=== PATIENT | female | born 1930 | race Caucasian/White ===

== ENCOUNTER → 2017-12-02 | Outpatient (RCR) | payer MEDICARE, OTHER ==
[2014-11-17 16:16] VITALS: BMI 52.8
--- NOTE | 2017-09-04 07:49 | PT INITIAL EVALUATION ---
MEDICAL DIAGNOSIS: Lymphedema, Skin Breakdown TREATMENT DIAGNOSIS: Lymphedema, Skin Breakdown, Venous Insufficiency, Obesity DATE OF ONSET: 08/23/17 SUBJECTIVE: Arpit is a pleasant 87 year-old female presenting to physical therapy for treatment of B LE edema with associated decreased mobility and function in ADL's. Pt reports that swelling started around 2001 following hip joint replacement and has remained high with continual joint replacement of B hips and the R knee. Pt reports swelling was off and on in the beginning, but then progressed to the current state slowly. Pt also reports a decrease of activity following surgical intervention resulting in weight gain as well. Pt reports that swelling is B, but worse in the L LE. Pt recently decide to seek medical assistance as progression resulted in occasional weeping of the anterior and posterior aspects of the L LE. Pt denies any pain associated with swelling. REHAB PROBLEM LIST: Decreased ROM Decreased Strength Impaired Transfers Decreased Endurance Decreased Function Decreased ADL's Decreased Mobility Decreased Gait PREVIOUS MEDICAL HISTORY: PMH significant for cardiac dysfunction including NM and murmur, but without CHF. PMH also significant for renal dysfunction. See EMR OBJECTIVE: Pt presents in a W/C. Morbidly obesity is present with B LE swelling L>R. Toes are square and swollen with hyperkeratosis present at the dorsal base B. ROM: ROM of B LE decreased secondary to weakness as well as bulk. Palpation: Pitting is present on the dorsum of the foot B, present on the R anterior monzon, and absent on the L anterior monzon. (-) Stemmer's sign on the R LE, (+) Stemmer's sign on digits 3-5 on the L LE. Sensation: Sensation diminished but intact to light touch on B LE. Pt denies any numbness or tingling in feet. Special Tests: Circumferential measures (L,R) in cm: 1st digit 8.7, 8.2, 2nd digit 6.5, 5.5, dorsum of foot 25.5, 23.8, figure-8 63, 60.5, above B malleoli 32.4, 32, calf 64, 52, below knee 54, 48. Mobility: Pt requires PT assistance for mobility of B LE for transfers on<>off plinth from seated<>supine. Pt ambulates with W/C for long distances with SPC for transfers in<>out of chair. At home pt reports that she ambulates with walker but is reportedly sedentary most of the day. Other Objective Findings: Skin changes are present on the anterior aspects of B shins as well as the posterior aspect of the L LE. The L anterior skin is most involved with hyperkeratosis present with 3 tiny active lesions with out present drainage, the surrounding skin is red, but not warm. Redness measured on the R anterior monzon at 6x10cm, and L anterior monzon at [id number]. ASSESSMENT: Pt shows signs and symptoms consistent with B LE venous insufficiency with mixed L LE lymphedema. Physical therapy, including MLD and wrapping, is indicated to address the above deficits reducing B limb volume resulting in increased pt functional ability to perform ADL's. Short Term Goals In 2 weeks pt will reduce L LE circumferential volume to within 1 cm of R LE for increased function with ADL's. In 4 weeks pt will reduce L LE circumferential volume to within .5 cm of R LE for increased function with ADL's. In 4 weeks pt will be independent with transfers from seated<>supine for improved function with ADL's. In 4 weeks pt will be independent with HEP and transition to maintenance of limb volume with compression garments. Patient's Goals Increase function, reduce weeping, reduce limb volume. PLAN: Patient to be seen for Manual Therapy/STM/MET Strengthening/condition Range of Motion Stretching Neuromuscular Re-ed Closed Chain Program Gait Trg/Balance Trg Home Exercise Program Therapeutic Activities 5x/Week for 4 Weeks If you have any questions, comments, or concerns about this report or plan, please contact me at . Thank you, Nina Leggett, PT, DPT, CLT MTDD
--- NOTE | 2017-09-24 12:49 | PT PLAN OF CARE ---
Physician: Maria De Jesus Ramirez MD Patient is being seen: 3x/Week Therapist: Nina Leggett, PT, DPT, CLT Medical Diagnosis: Lymphedema, Skin Breakdown Treatment Diagnosis: Lymphedema, Skin Breakdown, Venous Insufficiency, Obesity Date of Onset: 08/23/17 Date of Initial Evaluation: 09/03/17 Date patient was last seen: 09/23/17 Number of treatments: 10 Number of cancellations/No shows: 0 INTERVENTIONS: Manual Therapy/STM/MET Strengthening/condition Range of Motion Stretching Neuromuscular Re-ed Closed Chain Program Gait Trg/Balance Trg Home Exercise Program Therapeutic Activities GOALS: In 2 weeks pt will reduce L LE circumferential volume to within 1 cm of R LE for increased function with ADL's. In 4 weeks pt will reduce L LE circumferential volume to within .5 cm of R LE for increased function with ADL's. In 4 weeks pt will be independent with transfers from seated<>supine for improved function with ADL's. In 4 weeks pt will be independent with HEP and transition to maintenance of limb volume with compression garments. PATIENT'S GOAL: Increase function, reduce weeping, reduce limb volume. Status of Patient's Goals: In Progress Patient Compliance: Good Prognosis: Fair Reasons for continuing therapy: [place] shows good reductions in swelling in areas of increased fibrosis with slow progress likely secondary to precautions with renal dysfunction. Skin integrity shows improvement throughout B LE without any new locations of lesions or weeping. Pt to continue with MLD treatment and wrapping for further reductions and associated improvements with ADL's. ROM: ROM of B LE decreased secondary to weakness as well as bulk. Palpation: Pitting is present on the dorsum of the foot B, present on the R anterior monzon, and absent on the L anterior monzon. (-) Stemmer's sign on the R LE, (+) Stemmer's sign on digits 3-5 on the L LE. Special Tests: Circumferential measures (L,R) in cm: 1st digit 8.7, 8.2, 2nd digit 6.5, 5.5, dorsum of foot 24, 22.5, figure-8 61.2, 58.6, above B malleoli 31.3, 29.9, calf 59.4, 49.8, below knee 48.4, 46.6, above knee 58, 58 Mobility: Pt requires PT assistance for mobility of B LE for transfers on<>off plinth from seated<>supine. Pt ambulates with W/C for long distances with SPC for transfers in<>out of chair. At home pt reports that she ambulates with walker but is sedentary most of the day. If you have any questions or concerns, please feel free to contact me at . Thank you, Nina Leggett, PT, DPT, CLT MTDD
--- NOTE | 2017-10-18 16:48 | PT PLAN OF CARE ---
Physician: Maria De Jesus Ramirez MD Patient is being seen: 3x/Week Therapist: Nina Leggett, PT, DPT, CLT Medical Diagnosis: Lymphedema, Skin Breakdown Treatment Diagnosis: Lymphedema, Skin Breakdown, Venous Insufficiency, Obesity Date of Onset: 08/23/17 Date of Initial Evaluation: 09/03/17 Date patient was last seen: 10/18/17 Number of treatments: 20 Number of cancellations/No shows: 0 INTERVENTIONS: Manual Therapy/STM/MET Strengthening/condition Range of Motion Stretching Neuromuscular Re-ed Closed Chain Program Gait Trg/Balance Trg Home Exercise Program Therapeutic Activities GOALS: In 2 weeks pt will reduce L LE circumferential volume to within 1 cm of R LE for increased function with ADL's. In 4 weeks pt will reduce L LE circumferential volume to within .5 cm of R LE for increased function with ADL's. In 4 weeks pt will be independent with transfers from seated<>supine for improved function with ADL's. MET In 4 weeks pt will be independent with HEP and transition to maintenance of limb volume with compression garments. PATIENT'S GOAL: Increase function, reduce weeping, reduce limb volume. Status of Patient's Goals: In Progress Patient Compliance: Good Prognosis: Fair Reasons for continuing therapy: Pt shows significant differences in circumferential volumes with additional decrease in skin redness, blisters and fibrosis. Since initiating PT pt has had no episodes of skin tears or weeping and has had improved ROM and functional strength with performance of transfers. Pt shows greatest reduction in B feet with tendons and deep structures now palpable and visible. Redness and swelling remains in the L LE >R, posterior> anterior. Further MLD and compression therapy is indicated prior to pt transfer towards stockings. ROM: ROM of B LE decreased secondary to weakness as well as bulk. Palpation: Pitting is present on the R anterior monzon, and absent on the L anterior monzon. (-) Stemmer's sign in B foot and digits. Special Tests: Circumferential measures (L,R) in cm: 1st digit 8.2, 8.0, 2nd digit 5.7, 5.1, dorsum of foot 22.2, 21.2, figure-8 55.5, 55.6, above B malleoli 29, 27.2, calf 50.5, 49.5, below knee 50.5, 47.3, above knee 57.5, 57.8 Mobility: Pt is able to transfer from seated supine independently with multiple attempts at moving B LE Pt ambulates with W/C for long distances with SPC for transfers in<>out of chair. At home pt reports that she ambulates with walker but is sedentary most of the day. If you have any questions or concerns, please feel free to contact me at . Thank you, Nina Leggett, PT, DPT, CLT MTDD
--- NOTE | 2017-11-25 17:16 | PT PLAN OF CARE ---
Physician: Maria De Jesus Ramirez MD Patient is being seen: 3x/Week Therapist: Nina Leggett, PT, DPT, CLT Medical Diagnosis: Lymphedema, Skin Breakdown Treatment Diagnosis: Lymphedema, Skin Breakdown, Venous Insufficiency, Obesity Date of Onset: 08/23/17 Date of Initial Evaluation: 09/03/17 Date patient was last seen: 11/25/17 Number of treatments: 32 Number of cancellations/No shows: 1 INTERVENTIONS: Manual Therapy/STM/MET Strengthening/condition Range of Motion Stretching Neuromuscular Re-ed Closed Chain Program Gait Trg/Balance Trg Home Exercise Program Therapeutic Activities GOALS: In 2 weeks pt will reduce L LE circumferential volume to within 1 cm of R LE for increased function with ADL's. In 4 weeks pt will reduce L LE circumferential volume to within .5 cm of R LE for increased function with ADL's. In 4 weeks pt will be independent with transfers from seated<>supine for improved function with ADL's. MET In 4 weeks pt will be independent with HEP and transition to maintenance of limb volume with compression garments. PATIENT'S GOAL: Increase function, reduce weeping, reduce limb volume. Status of Patient's Goals: In Progress Patient Compliance: Good Prognosis: Fair Reasons for continuing therapy: [place] shows slow progress in the last month of treatment secondary to frequent breaks in care with the holiday season as well as with pt vacation resulting in return of edema in the L monzon portion and ankle. However, even without wrapping pressure, MLD has resulted in improved lymphatic flow which maintains all reductions in the feet B. Despite slow progress the R LE has progressed from short stretch bandage wrapping to compression garment use during the day with short stretch garment at night pending night garment arrival with pt ordering and donning and doffing aid availability. Further PT to continue with maintaining R LE volume as well as further reducing the L LE and improving functional strength overall. ROM: ROM of B LE decreased secondary to weakness as well as bulk. Palpation: Pitting is present on the R anterior monzon, and absent on the L anterior monzon. (-) Stemmer's sign in B foot and digits. Special Tests: Circumferential measures (L,R) in cm: 1st digit 8.2, 8.0, 2nd digit 5.7, 5.1, dorsum of foot 22.2, 21.2, figure-8 55.5, 55.6, above B malleoli 29, 27.2, calf 50.5, 47, below knee 50.5, 42.5, above knee 57.5, 57.8 Mobility: Pt is able to transfer from seated supine independently with multiple attempts at moving B LE Pt ambulates with W/C for long distances with SPC for transfers in<>out of chair. At home pt reports that she ambulates with walker but is sedentary most of the day. Outcome Measures: Lymphedema Life Impact Scale: 40/72 If you have any questions or concerns, please feel free to contact me at [phone]. Thank you, Nina Leggett, PT, DPT, CLT MTDD
[~2017-12-02] MED LIST: AMLO-104 PO; AMLO-99 PO; ASPI-715 PO; ASPI81TA94 PO; BENICAR PO; BLOO-1318 ASDIRECTED; CIPR-214 PO; DETROL; ENOX40DI8 SQ; EZET1TAB81 PO; FERR-125 PO; INSU100I34 SQ; LOSA-44 PO; LOSA25TA50 PO; METF-1 PO; METF-410 PO; METO-257 PO; METOPROLOL PO; MULT-1319 PO; MULT-865 PO; NEED-1; NORVASC PO; NOV7030I SQ; NOVALOG 70/30 SQ; OLME1TAB51 PO; PER PO; PHEN473S50 PO; PRAV10TA46 PO; PRAV20TA65 PO; TOLT2TAB5 PO; VALS1TAB80 PO; VYTORIN PO; WHEA1POW10 CHEW; [UNRECOGNIZED DRUG - CODE]
== END ==
LOC: PT 09-03 14:30
PROVIDERS: ATTEND Family Medicine
DX: I89.0 Lymphedema, not elsewhere classified (principal); L90.9 Atrophic disorder of skin, unspecified; I87.2 Venous insufficiency (chronic) (peripheral); N18.9 Chronic kidney disease, unspecified; I25.2 Old myocardial infarction; I51.89 Other ill-defined heart diseases; E66.2 Morbid (severe) obesity with alveolar hypoventilation
CPT/HCPCS: 97163

== ENCOUNTER 2018-01-03 15:12 | Outpatient (RCR) | payer MEDICARE, OTHER ==
[2014-11-17 16:16] VITALS: BMI 52.8
--- NOTE | 2017-12-05 13:47 | PT PLAN OF CARE ---
Physician: Maria De Jesus Ramirez MD Patient is being seen: 3x/Week Therapist: Nina Leggett, PT, DPT, CLT Medical Diagnosis: Lymphedema, Skin Breakdown Treatment Diagnosis: Lymphedema, Skin Breakdown, Venous Insufficiency, Obesity Date of Onset: 08/23/17 Date of Initial Evaluation: 09/03/17 Date patient was last seen: 12/04/17 Number of treatments: 36 Number of cancellations/No shows: 1 INTERVENTIONS: Manual Therapy/STM/MET Strengthening/condition Range of Motion Stretching Neuromuscular Re-ed Closed Chain Program Gait Trg/Balance Trg Home Exercise Program Therapeutic Activities GOALS: In 2 weeks pt will reduce L LE circumferential volume to within 1 cm of R LE for increased function with ADL's. In 4 weeks pt will reduce L LE circumferential volume to within .5 cm of R LE for increased function with ADL's. In 4 weeks pt will be independent with transfers from seated<>supine for improved function with ADL's. MET In 4 weeks pt will be independent with HEP and transition to maintenance of limb volume with compression wrap garments. PATIENT'S GOAL: Increase function, reduce weeping, reduce limb volume. Status of Patient's Goals: In Progress Patient Compliance: Good Prognosis: Fair Reasons for continuing therapy: [place] shows good gradual decrease in limb volume. POC was changed from progression towards compression stockings to gradient compression wrap garments secondary to pt and difficulty with donning and doffing of stockings. R LE shows good reductions with occasional return between visits but generally maintained volume. L LE shows improved skin texture with the foot maintaining reductions as well. Compression wrapping garments have been ordered and will act to supplement further MLD and wrapping treatment for improved results. ROM: ROM of B LE decreased secondary to weakness as well as bulk. Palpation: Pitting is present on the R anterior monzon, and absent on the L anterior monzon. (-) Stemmer's sign in B foot and digits. Special Tests: Circumferential measures (L,R) in cm: 1st digit 8.2, 7.8, 2nd digit 5.7, 5.1, dorsum of foot 22.2, 21.2, figure-8 55.5, 48, above B malleoli 29, 27.2, calf 50.5, 47, below knee 47.8, 42.5, above knee 57.5, 57.8 Mobility: Pt is able to transfer from seated supine independently with multiple attempts at moving B LE Pt ambulates with W/C for long distances with SPC for transfers in<>out of chair. At home pt reports that she ambulates with walker but is sedentary most of the day. Outcome Measures: Lymphedema Life Impact Scale: 40/72 If you have any questions or concerns, please feel free to contact me at . Thank you, Nina Leggett, PT, DPT, CLT MTDD
--- NOTE | 2018-01-02 14:49 | PT PLAN OF CARE ---
Physician: Maria De Jesus Ramirez MD Patient is being seen: 3x/Week Therapist: Nina Leggett, PT, DPT, CLT Medical Diagnosis: Lymphedema, Skin Breakdown Treatment Diagnosis: Lymphedema, Skin Breakdown, Venous Insufficiency, Obesity Date of Onset: 08/23/17 Date of Initial Evaluation: 09/03/17 Date patient was last seen: 01/01/18 Number of treatments: 46 Number of cancellations/No shows: 3 INTERVENTIONS: Manual Therapy/STM/MET Strengthening/condition Range of Motion Stretching Neuromuscular Re-ed Closed Chain Program Gait Trg/Balance Trg Home Exercise Program Therapeutic Activities GOALS: In 2 weeks pt will reduce L LE circumferential volume to within 1 cm of R LE for increased function with ADL's. MET in most In 4 weeks pt will reduce L LE circumferential volume to within .5 cm of R LE for increased function with ADL's. MET in most In 4 weeks pt will be independent with transfers from seated<>supine for improved function with ADL's. MET In 4 weeks pt will be independent with HEP and transition to maintenance of limb volume with compression wrap garments. In progress PATIENT'S GOAL: Increase function, reduce weeping, reduce limb volume. Status of Patient's Goals: In Progress Patient Compliance: Good Prognosis: Fair Reasons for continuing therapy: [place] continues to show improved circumferential reductions with decreased fibrosis throughout the entire B LE. Pt is to be evaluated for discharge towards independent progression next visit. ROM: ROM of B LE decreased secondary to weakness as well as bulk. Palpation: Pitting is present on the R anterior monzon, and absent on the L anterior monzon. (-) Stemmer's sign in B foot and digits. Special Tests: Circumferential measures (L,R) in cm: 1st digit 8.2, 8.1, 2nd digit 6.1, 5.1, dorsum of foot 23.2, 22.2, figure-8 53.8, 54.1, above B malleoli 27, 26.2, calf 45, 47, below knee 43.5, 43.5, above knee 54, 47.5 Mobility: Pt is able to transfer from seated supine independently with multiple attempts at moving B LE Pt ambulates with W/C for long distances with SPC for transfers in<>out of chair. At home pt reports that she ambulates with walker but is sedentary most of the day. Outcome Measures: Lymphedema Life Impact Scale: 40/72 If you have any questions or concerns, please feel free to contact me at . Thank you, Nina Leggett, PT, DPT, CLT MTDD
--- NOTE | 2018-01-03 16:33 | PT PLAN OF CARE ---
Physician: Maria De Jesus Ramirez MD Patient is being seen: 3x/Week Therapist: Nina Leggett, PT, DPT, CLT Medical Diagnosis: Lymphedema, Skin Breakdown Treatment Diagnosis: Lymphedema, Skin Breakdown, Venous Insufficiency, Obesity Date of Onset: 08/23/17 Date of Initial Evaluation: 09/03/17 Date patient was last seen: 01/03/18 Number of treatments: 47 Number of cancellations/No shows: 3 INTERVENTIONS: Manual Therapy/STM/MET Strengthening/condition Range of Motion Stretching Neuromuscular Re-ed Closed Chain Program Gait Trg/Balance Trg Home Exercise Program Therapeutic Activities GOALS: In 2 weeks pt will reduce L LE circumferential volume to within 1 cm of R LE for increased function with ADL's. MET In 4 weeks pt will reduce L LE circumferential volume to within .5 cm of R LE for increased function with ADL's. MET In 4 weeks pt will be independent with transfers from seated<>supine for improved function with ADL's. MET In 4 weeks pt will be independent with HEP and transition to maintenance of limb volume with compression wrap garments. MET PATIENT'S GOAL: Increase function, reduce weeping, reduce limb volume. Status of Patient's Goals: 4/4 Goals MET Patient Compliance: Good Prognosis: Fair Reasons for continuing therapy: Arpit is to discharge from physical therapy at this times secondary to completion of her functional goals. At the time of discharge both extremities show significant reduction in volume as well as fibrosis. The R LE no longer shows any swelling redness or skin changes and the L LE shows only minimal redness on the anterior monzon. Additionally pt shows improved strength and function with ambulation, transfers and ADL's. Upon discharge pt is to continue with home compression garments and exercises to maintain functional status and seek further treatment if any return in edema occurs. Palpation: (-) Stemmer's sign in all digits and dorsum of foot B. Special Tests: Circumferential measures (L,R) in cm: 1st digit 8.0, 8.1, 2nd digit 5.6, 5.1, dorsum of foot 22.2, 22.2, figure-8 53.8, 54.1, above B malleoli 25.5, 26.2, calf 47, 47, below knee 43.5, 43.5, above knee 54, 47.5 Mobility: Pt is able to transfer from seated supine independently with multiple attempts at moving B LE Outcome Measures: Lymphedema Life Impact Scale: If you have any questions or concerns, please feel free to contact me at [phone]. Thank you, Nina Leggett, PT, DPT, CLT MTDD
[2018-01-08] MEDS ORDERED: METF-1 PO (16:56)
== END 2018-01-03 18:00 | disposition home or self-care (01) ==
LOC: PT 15:12
PROVIDERS: ATTEND Family Medicine
DX: I89.0 Lymphedema, not elsewhere classified (principal); L90.9 Atrophic disorder of skin, unspecified; I87.2 Venous insufficiency (chronic) (peripheral); N18.9 Chronic kidney disease, unspecified; I25.2 Old myocardial infarction; I51.89 Other ill-defined heart diseases; E66.2 Morbid (severe) obesity with alveolar hypoventilation

== ENCOUNTER → 2018-01-14 | Outpatient (CLI) | payer MEDICARE, OTHER ==
[2014-11-17 16:16] VITALS: BMI 52.8
[~2018-01-14] MED LIST changes: -NEED-1; +NEED-1 SUBQ
[2018-01-14 16:16] LABS: PLATELET COUNT, AUTOMATED 324 K/uL (150-450)
== END ==
LOC: LAB 15:58
PROVIDERS: ATTEND Family Medicine
DX: E11.9 Type 2 diabetes mellitus without complications (principal); I10 Essential (primary) hypertension
CPT/HCPCS: 36415; 82040; 82247; 82310; 82374; 82435; 82465; 82565; 82947; 83036; 83718; 84075; 84132; 84155; 84295; 84443; 84450; 84460; 84478; 84520; 85025

== ENCOUNTER → 2018-07-09 | Outpatient (CLI) | payer MEDICARE, OTHER ==
[2014-11-17 16:16] VITALS: BMI 52.8
[~2018-07-09] MED LIST changes: -METF-410 PO; +METF-411 PO; +NYST15PO4 TP; +PRAV40TA78 PO
== END ==
LOC: LAB 15:45
PROVIDERS: ATTEND Family Medicine
DX: E11.9 Type 2 diabetes mellitus without complications (principal); I10 Essential (primary) hypertension
CPT/HCPCS: 36415; 82040; 82247; 82310; 82374; 82435; 82565; 82947; 83036; 84075; 84132; 84155; 84295; 84450; 84460; 84520

== ENCOUNTER → 2019-02-25 | Outpatient (CLI) | payer MEDICARE, OTHER ==
[2014-11-17 16:16] VITALS: BMI 52.8
[~2019-02-25] MED LIST changes: +ACET-2146 PO; +AMLO-127 PO; -AMLO-99 PO; -LOSA25TA50 PO; +LOSA25TA57 PO; -METF-411 PO; +METF-450 PO
[2019-02-25 16:56] LABS: PLATELET COUNT, AUTOMATED 395 K/uL (150-450)
== END ==
LOC: LAB 16:03
PROVIDERS: ATTEND Family Medicine
DX: E11.9 Type 2 diabetes mellitus without complications (principal)
CPT/HCPCS: 36415; 82040; 82247; 82310; 82374; 82435; 82565; 82947; 83036; 84075; 84132; 84155; 84295; 84450; 84460; 84520; 85025